=== PATIENT | female | born 1985 | race Caucasian/White ===

== ENCOUNTER 2018-03-06 11:01 | Emergency (ER) | payer OTHER ==
[~2018-03-06] VITALS: Ht 162.5 cm; Wt 48.1 kg
[~2018-03-06 11:01] MED LIST: DULCOLAX5 MG PO; FE-TABS325 MG PO; GAS RELIEF80 MG PO; IBU800 M1 PO; OXYCODONE5 MG PO; PRENATAL1 TA1 PO; VALTREX500 MG PO
[2018-03-06 11:26] LABS: BILIRUBIN NEGATIVE (NEGATIVE); BLOOD NEGATIVE (NEGATIVE); CLARITY SL CLOUDY (CLEAR); COLOR YELLOW (YELLOW); GLUCOSE NEGATIVE (NEGATIVE); KETONE NEGATIVE (NEGATIVE); LEUKO ESTERASE NEGATIVE (NEGATIVE); NITRITE NEGATIVE (NEGATIVE); SPECIFIC GRAVITY 1.025 (1.005-1.030); UROBILINOGEN 0.2 E.U./dl (0.2-1.0)
[2018-03-06 11:29] LABS: BASO % 0.2 % (0.0-1.0); EOS # 0.1 10*3/uL (0.0-0.4); EOS % 1.1 % (1.0-4.0); HEMATOCRIT 35.4 % (37.0-47.0); HEMOGLOBIN 12.2 g/dl (12.0-16.0); LYMPH # 1.6 10*3/uL (1.3-4.4); LYMPH % 25.7 % (27.0-41.0); MEAN CELL VOLUME 91.9 fl (81.0-99.0); MEAN CORPUSCULAR HGB 31.7 pg (27.0-31.0); MEAN CORPUSCULAR HGB CONC 34.5 g/dl (33.0-37.0); MEAN PLATELET VOLUME 8.6 fl (9.6-12.3); MONO # 0.3 10*3/uL (0.1-1.0); NEUT # 4.3 10*3/uL (2.3-7.9); NEUT % 67.7 % (47.0-73.0); PLATELET COUNT AUTOMATED 188 10*3/uL (130-400); RED BLOOD COUNT 3.85 10*6/uL (4.10-5.10); RED CELL DISTRI WIDTH 11.7 % (0-14.5); WHITE BLOOD COUNT 6.3 10*3/uL (4.8-10.8)
[2018-03-06 11:40] LABS: BUN 9 mg/dl (7-24); CHLORIDE 103 mmol/L (98-107); CREATININE 0.54 mg/dL (0.55-1.02); POTASSIUM 3.5 mmol/L (3.5-5.1); SODIUM 136 mmol/L (136-145)
[2018-03-06 11:45] LABS: BACTERIA 3+
== END 2018-03-06 13:30 | disposition home or self-care (01) ==
LOC: ED 11:01
PROVIDERS: Emergency Medicine
DX: O46.91 Antepartum hemorrhage, unspecified, first trimester (principal); O41.8X10 Other specified disorders of amniotic fluid and membranes, first trimester, not applicable or unspecified; O99.331 Smoking (tobacco) complicating pregnancy, first trimester; Z3A.01 Less than 8 weeks gestation of pregnancy; Z79.899 Other long term (current) drug therapy

== ENCOUNTER 2020-07-22 22:03 | Emergency (ER) | payer OTHER ==
[~2020-07-22] VITALS: Ht 162.5 cm; Wt 54.4 kg
[2020-07-22 23:18] LABS: BILIRUBIN Negative (Negative); BLOOD Negative (Negative); CLARITY Clear (Clear); COLOR Yellow (Yellow); GLUCOSE Negative (Negative); KETONE Trace (Negative); LEUKO ESTERASE Negative (Negative); NITRITE Negative (Negative); PH 6.5 (4.5-8.0); SPECIFIC GRAVITY 1.025 (1.001-1.030)
[2020-07-22 23:47] LABS: BASO % 0.5 % (0.0-1.0); EOS # 0.2 10*3/uL (0.0-0.4); EOS % 2.7 % (1.0-4.0); HEMATOCRIT 34.3 % (37.0-47.0); LYMPH # 1.9 10*3/uL (1.3-4.4); LYMPH % 34.3 % (27.0-41.0); MEAN CELL VOLUME 94.2 fl (81.0-99.0); MEAN CORPUSCULAR HGB 31.6 pg (27.0-31.0); MEAN CORPUSCULAR HGB CONC 33.5 g/dl (33.0-37.0); MONO # 0.4 10*3/uL (0.1-1.0); MONO % 6.6 % (3.0-9.0); NEUT # 3.1 10*3/uL (2.3-7.9); NEUT % 55.5 % (47.0-73.0); PLATELET COUNT AUTOMATED 223 10*3/uL (130-400); RED BLOOD COUNT 3.64 10*6/uL (4.10-5.10); RED CELL DISTRI WIDTH 12.1 % (0-14.5); WHITE BLOOD COUNT 5.6 10*3/uL (4.8-10.8)
[2020-07-22 23:49] LABS: BACTERIA 1+; EPITHELIAL CELLS 31-40; WBC 0-2 wbc/hpf (0-5)
[2020-07-23 00:32] LABS: ALBUMIN 3.9 gm/dl (3.1-4.5); ALKALINE PHOSPHATASE 25 U/L (45-117); BUN 10 mg/dl (7-24); CHLORIDE 108 mmol/L (98-107); CREATININE 0.61 mg/dL (0.55-1.02); LIPASE 167 U/L (73-393); POTASSIUM 3.7 mmol/L (3.5-5.1); SGOT/AST 12 IU/L (3-35); SGPT/ALT 26 U/L (12-78); SODIUM 139 mmol/L (136-145); TOTAL PROTEIN 7.5 gm/dL (6.4-8.2)
[2020-07-23] MEDS ORDERED: IBUPROFEN600 MG PO (01:58)
== END 2020-07-23 02:23 | disposition home or self-care (01) ==
LOC: ED 22:03
PROVIDERS: Physician Assistant
DX: R10.31 Right lower quadrant pain (principal); Z79.899 Other long term (current) drug therapy

== ENCOUNTER → 2020-07-23 | Outpatient (CLI) | payer OTHER ==
[~2020-07-23] MED LIST changes: +IBUPROFEN600 MG PO
== END | disposition home or self-care (01) ==
LOC: US 09:29
PROVIDERS: ATTEND Physician Assistant
DX: R10.31 Right lower quadrant pain (principal)